=== PATIENT | male | born 1965 | race African-American/Black ===

== ENCOUNTER 2022-04-10 08:34 | Day surgery (SDC) | payer BC ==
[~2022-04-10 08:34] MED LIST: Tixagevimab 1.5 ML/Cilgavimab 1.5 ML (EUA) IM SCH
[2022-04-10 08:48] VITALS: BP 104/61; TEMP 98.1
== END 2022-04-10 09:00 | disposition home or self-care (01) ==
LOC: ONC/OP 08:34
PROVIDERS: ATTEND Family Medicine
DX: Z29.8 Encounter for other specified prophylactic measures (principal); Z94.0 Kidney transplant status
CPT/HCPCS: M0220; Q0220

== ENCOUNTER 2022-05-14 18:09 | Inpatient (IN) | payer BC ==
[2022-05-14 18:43] LABS: #Lymphocytes 0.5 thou/uL (1.20-3.40); #Monocytes 0.3 thou/uL (0.11-0.59); #Neutrophils 4.9 thou/uL (1.40-6.50); %Basophils 0.1 % (0.0-1.0); %Eosinophils 0.1 % (0.0-10.0); %Lymphocytes 8.3 % (21.0-51.0); %Neutrophils 86.5 % (42.0-75.0); Mean Corpuscular HGB CONC 33.6 g/dL (32.0-36.0); Mean Corpuscular Hemoglobin 28.6 pg (27.0-31.0); Mean Corpuscular Volume 85.2 fL (78.0-98.0); Mean Platelet Volume 9.5 fL (7.4-10.4); Platelet Count 146 thou/uL (130-400); RBC Distribution Width 13.7 % (11.5-14.5); Red Blood Cell (RBC) Count 2.09 mill/uL (4.70-6.10); White Blood Cell (WBC) Count 5.6 thou/uL (4.8-10.8)
[2022-05-14 18:59] LABS: ALT (SGPT) Less than 7 U/L (8-55); AST (SGOT) 9 U/L (5-34); Albumin 3.4 g/dL (3.5-5.0); Alkaline Phosphatase 52 U/L (40-110); Anion Gap 17 mmol/L (10-20); Bilirubin, Total 0.4 mg/dL (0.2-1.2); Calc. Creatinine Clearance 0 mL/min (70-130); Calcium 8.5 mg/dL (7.8-10.44); Chloride 112 mmol/L (98-107); Estimated GFR 8; Globulin 2.4 g/dL (2.4-3.5); Glucose 121 mg/dL (70-105); Potassium 5.9 mmol/L (3.5-5.1); Protein, Total 5.8 g/dL (6.0-8.3); Sodium 131 mmol/L (136-145)
[2022-05-14] MEDS ORDERED: NOREPINEPHRINE 8 MG/250 ML-D5W 250 ML ONE ×2 (19:01→19:34)
[2022-05-14 19:07] LABS: Carbon Dioxide 8 mmol/L (22-29)
[2022-05-14 19:10] LABS: BUN (Urea Nitrogen) 118 mg/dL (8.4-25.7)
[2022-05-14] MEDS ORDERED: DOPamine 400 MG/D5W 250 ML 250 ML ONE (19:15)
[2022-05-14 19:20] LABS: CKMB 4.3 ng/mL (0-6.6)
[2022-05-14] MEDS ORDERED: Sodium Bicarb 50 MEQ/50 ML VIAL ONE (19:34)
[2022-05-14] MEDS ORDERED: Sodium Bicarbonate 150 MEQ in Dextrose 5% in Water 1,000 ML IV SCH ×2 (19:45→22:15)
[2022-05-14 20:47] LABS: Anion Gap 18 mmol/L (10-20); Calc. Creatinine Clearance 0 mL/min (70-130); Calcium 8.6 mg/dL (7.8-10.44); Chloride 112 mmol/L (98-107); Estimated GFR 9; Glucose 144 mg/dL (70-105); Potassium 6.2 mmol/L (3.5-5.1); Sodium 133 mmol/L (136-145)
[2022-05-14] MEDS ORDERED: Acetaminophen 325 MG TAB PO PRN (20:52)
[2022-05-14] MEDS ORDERED: Ondansetron ODT 4 MG TAB PO PRN (20:52)
[2022-05-14] MEDS ORDERED: Senokot S 8.6-50 MG TAB PO PRN (20:52)
[2022-05-14] MEDS ORDERED: Ondansetron PF 4 MG/2 ML Vial IVP PRN (20:52)
[2022-05-14] MEDS ORDERED: Bisacodyl 5 MG TAB PO PRN (20:52)
[2022-05-14 20:56] LABS: Carbon Dioxide 9 mmol/L (22-29)
[2022-05-14] MEDS ORDERED: Dextrose 50% Abboject 50 ML SYRINGE SLOW IVP PRN (20:57)
[2022-05-14] MEDS ORDERED: HumaLOG 300 UNITS/3 ML VIAL SC PRN (20:57)
[2022-05-14] MEDS ORDERED: Dextrose 5% in Water 1,000 ML IV PRN (20:57)
[2022-05-14 20:58] LABS: BUN (Urea Nitrogen) 114 mg/dL (8.4-25.7)
[2022-05-14] MEDS ORDERED: Sodium Chloride 0.9% 1,000 ML IV SCH ×2 (21:00→22:00)
[2022-05-14] MEDS ORDERED: NOREPINEPHRINE 8 MG/250 ML-D5W 250 ML IVPB SCH (21:00)
[2022-05-14] MEDS ORDERED: Sodium Bicarb 50 MEQ/50 ML VIAL IVP SCH (22:15)
[2022-05-14] MEDS: Heparin 5,000 UNITS/ML VIAL SC SCH (22:38)
[2022-05-14 22:44] VITALS: BMI 34.7
[2022-05-14 22:50] LABS: Bacteria/HPF None Seen HPF (None Seen); Bilirubin Negative (Negative); Blood, Urine 2+ (Negative); Clarity Clear (Clear); Glucose, Urine (Dipstick) 30 mg/dL (Negative); Ketone, Urine Negative (Negative); Leukocyte 25 Leu/uL (Negative); Nitrite Negative (Negative); Protein, Urine (Dipstick) 100 mg/dL (Neg-Trace); RBC/HPF 21-50 HPF (0-3); Specific Gravity, Urine 1.015 (1.002-1.036); Squamous Epithelial 0-3 HPF (0-3); Urobilinogen Normal mg/dL (Less than 2); pH, Urine 5.5 (5.0-9.0)
[2022-05-14 22:52] LABS: Urine Culture Reflex Yes Yes
[2022-05-14 22:59] LABS: CRP (Inflammatory) Less than 0.50 mg/dL (= or < 0.5); Lipase 531 U/L (8-78)
[2022-05-14 22:59] LABS: Base Excess (BEa) -12.9 mEq/L (-2.0 to +3.0); CO2 Tension 29.8 mmHg (35.0-45.0); Calcium, Ionized (arterial) 1.17 mmol/L (1.12-1.30); Carboxyhemoglobin (COHb) 0.4 gm% (0.0-3.0); Potassium - ABG Lab 5.66 mmol/L (3.70-5.30); pH, Arterial 7.26 (7.35-7.45)
[2022-05-14 22:59] LABS: Iron 161 ug/dL (65-175); Iron Binding Capacity, Total 163 mcg/dL (261-462)
[2022-05-14 23:01] LABS: O2 Tension (PaO2), arterial 30.3 mmHg (80.0-100.0)
[2022-05-14 23:02] LABS: Puncture Site LRA
[2022-05-14] MEDS: DOPamine 400 MG/D5W 250 ML 250 ML IVPB SCH (23:56)
[2022-05-15 00:10] LABS: SARS-CoV-2 NAA Rapid Test Not Detected (NotDetected)
[2022-05-15] MEDS ORDERED: Pantoprazole 40 MG VIAL IVP SCH ×2 (01:00→09:00)
[2022-05-15 03:06] LABS: Reticulocyte Count 1.6 % (0.5-1.5)
[2022-05-15 03:22] LABS: ALT (SGPT) Less than 7 U/L (8-55); AST (SGOT) 10 U/L (5-34); Albumin 3.3 g/dL (3.5-5.0); Alkaline Phosphatase 52 U/L (40-110); Anion Gap 17 mmol/L (10-20); Bilirubin, Total 0.7 mg/dL (0.2-1.2); Calc. Creatinine Clearance 23 mL/min (70-130); Calcium 8.3 mg/dL (7.8-10.44); Carbon Dioxide 13 mmol/L (22-29); Chloride 109 mmol/L (98-107); Estimated GFR 9; Globulin 2.4 g/dL (2.4-3.5); Glucose 133 mg/dL (70-105); Magnesium 1.2 mg/dL (1.6-2.6); Potassium 4.8 mmol/L (3.5-5.1); Protein, Total 5.7 g/dL (6.0-8.3); Sodium 134 mmol/L (136-145)
[2022-05-15 03:34] LABS: BUN (Urea Nitrogen) 121 mg/dL (8.4-25.7)
[2022-05-15] MEDS: DOPamine 400 MG/D5W 250 ML 250 ML IVPB SCH ×2 (04:00→09:25)
[2022-05-15] MEDS: Sodium Bicarbonate 150 MEQ in Dextrose 5% in Water 1,000 ML IV SCH ×2 (04:24→15:20)
[2022-05-15 05:01] LABS: CKMB 4.3 ng/mL (0-6.6)
[2022-05-15 05:26] LABS: Cardiac Risk 2.9 (Less than 4.5); Cholesterol 120 mg/dl (< 200 Desired); HDL Cholesterol 42 mg/dL (>60 Neg Risk); LDL Cholesterol, Calculated 63 mg/dL; Phosphorus 5.9 mg/dL (2.3-4.7); Triglycerides 75 mg/dL (Less than 150)
[2022-05-15 05:35] LABS: Hemoglobin A1c 5.6 % (4.0-6.0)
[2022-05-15 05:37] LABS: #Lymphocytes 0.6 thou/uL (1.20-3.40); #Monocytes 0.6 thou/uL (0.11-0.59); #Neutrophils 4.7 thou/uL (1.40-6.50); %Eosinophils 0.2 % (0.0-10.0); %Lymphocytes 10.1 % (21.0-51.0); %Monocytes 10.3 % (0.0-10.0); %Neutrophils 79.4 % (42.0-75.0); Hemoglobin 6.5 g/dL (14.0-18.0); Mean Corpuscular HGB CONC 33.3 g/dL (32.0-36.0); Mean Corpuscular Hemoglobin 28.2 pg (27.0-31.0); Mean Corpuscular Volume 84.7 fL (78.0-98.0); Mean Platelet Volume 9.4 fL (7.4-10.4); Platelet Count 149 thou/uL (130-400); RBC Distribution Width 14.2 % (11.5-14.5); Red Blood Cell (RBC) Count 2.28 mill/uL (4.70-6.10); White Blood Cell (WBC) Count 5.9 thou/uL (4.8-10.8)
[2022-05-15] MEDS ORDERED: Magnesium 2 GM/50 ML(in water) 2 GM in Premix Bag 1 BAG IVPB SCH ×2 (06:30→13:00)
[2022-05-15 06:59] LABS: Lipase 2391 U/L (8-78)
[2022-05-15] MEDS ORDERED: FLU VACC QS2022-23(6MOS UP)/PF 60 MCG/0.5 ML SYRINGE IM ONE (09:00)
[2022-05-15] MEDS ORDERED: metroNIDAZOLE 500 MG in Premix Bag 1 BAG IVPB SCH (10:55)
[2022-05-15] MEDS ORDERED: Piperacillin/Tazobactam 2.25 GM in Sodium Chloride 0.9% 100 ML IVPB SCH (10:57)
[2022-05-15] MEDS ORDERED: Piperacillin/Tazobactam 3.375 GM in Sodium Chloride 0.9% 100 ML IVPB SCH (11:30)
[2022-05-15] MEDS ORDERED: Pantoprazole 80 MG in Sodium Chloride 0.9% 100 ML IVPB SCH (11:30)
[2022-05-15 13:16] LABS: Hemoglobin 6.6 g/dL (14.0-18.0); Mean Corpuscular Hemoglobin 29.2 pg (27.0-31.0); Mean Corpuscular Volume 85.9 fL (78.0-98.0); Mean Platelet Volume 9.1 fL (7.4-10.4); Platelet Count 140 thou/uL (130-400); RBC Distribution Width 14.6 % (11.5-14.5); Red Blood Cell (RBC) Count 2.25 mill/uL (4.70-6.10); White Blood Cell (WBC) Count 5.5 thou/uL (4.8-10.8)
[2022-05-15] MEDS: Epoetin (ESRD) 10,000 UNITS/ML VIAL SC SCH (13:35)
[2022-05-15] MEDS: metroNIDAZOLE 500 MG in Premix Bag 1 BAG IVPB SCH ×2 (14:17→22:05)
[2022-05-15 15:01] LABS: Glucose 105 mg/dL (70-105)
[2022-05-15 15:25] LABS: Ref Lab Test Ordered Mycophenolate & Met; Reference Lab Name LABCORP
[2022-05-15] MEDS ORDERED: Hydrocortisone Sod Succ/PF 100 mg/2 ml Vial IVP SCH (16:15)
[2022-05-15] MEDS: Pantoprazole 80 MG, Admixture Fee 1 EACH in Sodium Chloride 0.9% 100 ML IVPB SCH (16:23)
[2022-05-15] MEDS: Piperacillin/Tazobactam 3.375 GM in Sodium Chloride 0.9% 100 ML IVPB SCH (16:54)
[2022-05-15] MEDS ORDERED: Sodium Bicarbonate 150 MEQ in Dextrose 5% in Water 1,000 ML IV SCH ×2 (17:00)
[2022-05-15] MEDS ORDERED: GANCICLOVIR SODIUM IVPB SCH ×2 (18:00)
[2022-05-15] MEDS ORDERED: SODIUM CHLORIDE 0.9% IVPB SCH ×2 (18:00)
[2022-05-15 19:22] LABS: Glucose 108 mg/dL (70-105)
[2022-05-15] MEDS: SODIUM CHLORIDE 0.9% IVPB SCH (19:40)
[2022-05-15] MEDS: GANCICLOVIR SODIUM IVPB SCH (19:40)
[2022-05-15 22:55] LABS: Glucose 116 mg/dL (70-105)
[2022-05-16] MEDS: Hydrocortisone Sod Succ/PF 100 mg/2 ml Vial IVP SCH ×4 (00:33→16:54)
[2022-05-16] MEDS: Pantoprazole 80 MG, Admixture Fee 1 EACH in Sodium Chloride 0.9% 100 ML IVPB SCH ×3 (00:38→21:33)
[2022-05-16] MEDS: Piperacillin/Tazobactam 3.375 GM in Sodium Chloride 0.9% 100 ML IVPB SCH ×2 (03:47→16:54)
[2022-05-16 04:52] LABS: Lactic Acid 0.6 mmol/L (0.5-2.2)
[2022-05-16 04:56] LABS: Anion Gap 12 mmol/L (10-20); BUN (Urea Nitrogen) 107 mg/dL (8.4-25.7); Calc. Creatinine Clearance 33 mL/min (70-130); Calcium 8.4 mg/dL (7.8-10.44); Carbon Dioxide 18 mmol/L (22-29); Chloride 113 mmol/L (98-107); Estimated GFR 15; Glucose 126 mg/dL (70-105); Magnesium 1.4 mg/dL (1.6-2.6); Potassium 4.8 mmol/L (3.5-5.1); Sodium 138 mmol/L (136-145)
[2022-05-16 05:05] LABS: #Basophils 0.1 thou/uL (0.0-0.2); #Lymphocytes 0.3 thou/uL (1.20-3.40); #Monocytes 0.3 thou/uL (0.11-0.59); #Neutrophils 5.2 thou/uL (1.40-6.50); %Basophils 2.2 % (0.0-1.0); %Eosinophils 0.1 % (0.0-10.0); %Lymphocytes 4.9 % (21.0-51.0); %Monocytes 4.9 % (0.0-10.0); %Neutrophils 87.9 % (42.0-75.0); Hemoglobin 7.3 g/dL (14.0-18.0); Mean Corpuscular HGB CONC 35.7 g/dL (32.0-36.0); Mean Corpuscular Hemoglobin 30.4 pg (27.0-31.0); Mean Corpuscular Volume 85.2 fL (78.0-98.0); Mean Platelet Volume 9.7 fL (7.4-10.4); Platelet Count 119 thou/uL (130-400); Platelet Morphology Comment Appears Decreased; RBC Distribution Width 14.5 % (11.5-14.5); Red Blood Cell (RBC) Count 2.39 mill/uL (4.70-6.10); White Blood Cell (WBC) Count 5.9 thou/uL (4.8-10.8)
[2022-05-16 05:35] LABS: INR-International Normal Ratio 1.1; Prothrombin Time 14.4 sec (12.0-14.7)
[2022-05-16 05:36] LABS: PTT 38.5 sec (22.9-36.1)
[2022-05-16] MEDS: metroNIDAZOLE 500 MG in Premix Bag 1 BAG IVPB SCH ×3 (06:25→21:19)
[2022-05-16] MEDS ORDERED: Magnesium 2 GM/50 ML(in water) 2 GM in Premix Bag 1 BAG IVPB SCH (07:45)
[2022-05-16] MEDS: Heparin 5,000 UNITS/ML VIAL SC SCH ×3 (08:30→21:34)
[2022-05-16] MEDS: cycloSPORINE, Modified 100 MG CAP PO SCH ×2 (08:36→21:34)
[2022-05-16] MEDS: Magnesium 2 GM/50 ML(in water) 2 GM in Premix Bag 1 BAG IVPB SCH ×2 (10:47→12:57)
[2022-05-16] MEDS: GANCICLOVIR SODIUM IVPB SCH (17:55)
[2022-05-16] MEDS: SODIUM CHLORIDE 0.9% IVPB SCH (17:55)
[2022-05-17 00:57] LABS: Glucose 121 mg/dL (70-105)
[2022-05-17] MEDS: Hydrocortisone Sod Succ/PF 100 mg/2 ml Vial IVP SCH ×4 (01:23→20:29)
[2022-05-17] MEDS: Piperacillin/Tazobactam 3.375 GM in Sodium Chloride 0.9% 100 ML IVPB SCH ×2 (04:12→16:41)
[2022-05-17 04:32] LABS: #Lymphocytes 0.5 thou/uL (1.20-3.40); #Monocytes 0.5 thou/uL (0.11-0.59); #Neutrophils 4.5 thou/uL (1.40-6.50); %Basophils 0.1 % (0.0-1.0); %Eosinophils 0.1 % (0.0-10.0); %Lymphocytes 9.4 % (21.0-51.0); %Monocytes 8.2 % (0.0-10.0); %Neutrophils 82.2 % (42.0-75.0); Hemoglobin 7.5 g/dL (14.0-18.0); Mean Corpuscular HGB CONC 33.4 g/dL (32.0-36.0); Mean Corpuscular Hemoglobin 28.8 pg (27.0-31.0); Mean Corpuscular Volume 86.2 fL (78.0-98.0); Mean Platelet Volume 10.2 fL (7.4-10.4); Platelet Count 109 thou/uL (130-400); RBC Distribution Width 14.7 % (11.5-14.5); Red Blood Cell (RBC) Count 2.59 mill/uL (4.70-6.10); White Blood Cell (WBC) Count 5.4 thou/uL (4.8-10.8)
[2022-05-17 04:58] LABS: ALT (SGPT) Less than 7 U/L (8-55); AST (SGOT) 9 U/L (5-34); Albumin 3.1 g/dL (3.5-5.0); Alkaline Phosphatase 45 U/L (40-110); Anion Gap 12 mmol/L (10-20); BUN (Urea Nitrogen) 86 mg/dL (8.4-25.7); Bilirubin, Direct 0.3 mg/dL (0.1-0.3); Bilirubin, Total 0.7 mg/dL (0.2-1.2); Calc. Creatinine Clearance 40 mL/min (70-130); Calcium 8.7 mg/dL (7.8-10.44); Carbon Dioxide 20 mmol/L (22-29); Cardiac Risk 2.7 (Less than 4.5); Chloride 112 mmol/L (98-107); Cholesterol 115 mg/dl (< 200 Desired); Estimated GFR 18; Globulin 2.2 g/dL (2.4-3.5); Glucose 127 mg/dL (70-105); HDL Cholesterol 42 mg/dL (>60 Neg Risk); LDL Cholesterol, Calculated 60 mg/dL; Lipase 121 U/L (8-78); Magnesium 1.9 mg/dL (1.6-2.6); Potassium 4.2 mmol/L (3.5-5.1); Protein, Total 5.3 g/dL (6.0-8.3); Sodium 140 mmol/L (136-145); Triglycerides 64 mg/dL (Less than 150)
[2022-05-17 05:03] LABS: Phosphorus 3.2 mg/dL (2.3-4.7)
[2022-05-17] MEDS: metroNIDAZOLE 500 MG in Premix Bag 1 BAG IVPB SCH ×2 (06:19→15:01)
[2022-05-17] MEDS: Heparin 5,000 UNITS/ML VIAL SC SCH ×3 (09:32→20:31)
[2022-05-17] MEDS: Mycophenolate 250 MG CAP PO SCH ×2 (09:33→20:28)
[2022-05-17] MEDS: cycloSPORINE, Modified 100 MG CAP PO SCH ×2 (09:33→20:27)
[2022-05-17] MEDS ORDERED: Atenolol 25 MG TAB PO SCH (10:00)
[2022-05-17] MEDS ORDERED: GANCICLOVIR SODIUM IVPB SCH (18:00)
[2022-05-17] MEDS ORDERED: SODIUM CHLORIDE 0.9% IVPB SCH (18:00)
[2022-05-17] MEDS: Tamsulosin HCl 0.4 MG CAP PO SCH (20:27)
[2022-05-18] MEDS: Piperacillin/Tazobactam 3.375 GM in Sodium Chloride 0.9% 100 ML IVPB SCH ×3 (04:24→21:26)
[2022-05-18] MEDS ORDERED: Lisinopril 5 MG TAB PO SCH (09:00)
[2022-05-18] MEDS ORDERED: Atenolol 50 MG TAB PO SCH (09:00)
[2022-05-18] MEDS: Allopurinol 100 MG TAB PO SCH (09:53)
[2022-05-18] MEDS: cycloSPORINE, Modified 100 MG CAP PO SCH ×2 (09:54→21:27)
[2022-05-18] MEDS: Hydrocortisone Sod Succ/PF 100 mg/2 ml Vial IVP SCH ×2 (09:58→21:25)
[2022-05-18] MEDS: Heparin 5,000 UNITS/ML VIAL SC SCH ×3 (09:58→21:26)
[2022-05-18] MEDS: Mycophenolate 250 MG CAP PO SCH ×2 (09:59→21:28)
[2022-05-18] MEDS: Minoxidil 10 MG TAB PO SCH (10:38)
[2022-05-18] MEDS ORDERED: Atenolol 25 MG TAB PO SCH (15:00)
[2022-05-18 16:13] LABS: CMV log 10 Quant 3.726 (.)
[2022-05-18] MEDS ORDERED: SODIUM CHLORIDE 0.9% IVPB SCH (18:00)
[2022-05-18] MEDS ORDERED: GANCICLOVIR SODIUM IVPB SCH (18:00)
[2022-05-18] MEDS: Tamsulosin HCl 0.4 MG CAP PO SCH (21:27)
[2022-05-19 05:32] LABS: ALT (SGPT) 10 U/L (8-55); AST (SGOT) 11 U/L (5-34); Albumin 3.3 g/dL (3.5-5.0); Alkaline Phosphatase 45 U/L (40-110); Anion Gap 14 mmol/L (10-20); BUN (Urea Nitrogen) 47 mg/dL (8.4-25.7); Bilirubin, Total 0.8 mg/dL (0.2-1.2); Calc. Creatinine Clearance 51 mL/min (70-130); Calcium 8.7 mg/dL (7.8-10.44); Carbon Dioxide 22 mmol/L (22-29); Chloride 109 mmol/L (98-107); Estimated GFR 27; Globulin 2.2 g/dL (2.4-3.5); Glucose 121 mg/dL (70-105); Potassium 3.3 mmol/L (3.5-5.1); Protein, Total 5.5 g/dL (6.0-8.3); Sodium 142 mmol/L (136-145)
[2022-05-19 05:41] LABS: Band 2 % (5-11); Eosinophils 2 % (0-10); Hemoglobin 8.1 g/dL (14.0-18.0); Lymphocytes 3 % (21-51); MDiff Complete? YES; Mean Corpuscular HGB CONC 34.1 g/dL (32.0-36.0); Mean Corpuscular Hemoglobin 29.9 pg (27.0-31.0); Mean Corpuscular Volume 87.7 fL (78.0-98.0); Metamyelocyte 1 % (0-0); Monocytes 13 % (0-10); Neutrophil 79 % (42-75); Platelet Count 106 thou/uL (130-400); Platelet Morphology Comment Appears Decreased; RBC Distribution Width 14.7 % (11.5-14.5); White Blood Cell (WBC) Count 4.7 thou/uL (4.8-10.8)
[2022-05-19] MEDS: Piperacillin/Tazobactam 3.375 GM in Sodium Chloride 0.9% 100 ML IVPB SCH (06:44)
[2022-05-19] MEDS ORDERED: Electrolyte Replacement Protocol 1 EACH FS SCH (07:30)
[2022-05-19] MEDS ORDERED: Potassium Chloride 20 MEQ TAB PO SCH (08:00)
[2022-05-19] MEDS: Atenolol 50 MG TAB PO SCH ×2 (10:01→20:38)
[2022-05-19] MEDS: cycloSPORINE, Modified 100 MG CAP PO SCH ×2 (10:02→20:41)
[2022-05-19] MEDS: NIFEdipine XL 30 MG TAB PO SCH ×2 (10:02→20:38)
[2022-05-19] MEDS: Minoxidil 10 MG TAB PO SCH (10:03)
[2022-05-19] MEDS: Hydrocortisone Sod Succ/PF 100 mg/2 ml Vial IVP SCH ×2 (10:03→20:40)
[2022-05-19] MEDS: Allopurinol 100 MG TAB PO SCH (10:03)
[2022-05-19] MEDS: Heparin 5,000 UNITS/ML VIAL SC SCH ×3 (10:04→20:40)
[2022-05-19] MEDS: Mycophenolate 250 MG CAP PO SCH ×2 (10:06→20:41)
[2022-05-19] MEDS: Lisinopril 5 MG TAB PO SCH ×2 (10:06→20:38)
[2022-05-19] MEDS: Tamsulosin HCl 0.4 MG CAP PO SCH (20:40)
[2022-05-19] MEDS: Famotidine 20 MG TAB PO SCH (20:40)
[2022-05-20 05:21] LABS: Anion Gap 12 mmol/L (10-20); BUN (Urea Nitrogen) 44 mg/dL (8.4-25.7); Calc. Creatinine Clearance 55 mL/min (70-130); Calcium 8.3 mg/dL (7.8-10.44); Carbon Dioxide 22 mmol/L (22-29); Chloride 107 mmol/L (98-107); Estimated GFR 29; Glucose 126 mg/dL (70-105); Magnesium 1.1 mg/dL (1.6-2.6); Sodium 138 mmol/L (136-145)
[2022-05-20 06:38] LABS: #Lymphocytes 0.9 thou/uL (1.20-3.40); #Monocytes 0.5 thou/uL (0.11-0.59); #Neutrophils 3.9 thou/uL (1.40-6.50); %Basophils 0.1 % (0.0-1.0); %Eosinophils 0.3 % (0.0-10.0); %Lymphocytes 16.7 % (21.0-51.0); %Monocytes 9.9 % (0.0-10.0); Anisocytosis SLIGHT = 6-15 cells (100X) (0-5/hpf); Hemoglobin 7.5 g/dL (14.0-18.0); MDiff Complete? YES; Mean Corpuscular HGB CONC 33.1 g/dL (32.0-36.0); Mean Corpuscular Hemoglobin 29.1 pg (27.0-31.0); Mean Corpuscular Volume 87.9 fL (78.0-98.0); Mean Platelet Volume 10.6 fL (7.4-10.4); Platelet Count 103 thou/uL (130-400); Platelet Morphology Comment Appears Decreased; RBC Distribution Width 14.7 % (11.5-14.5); Red Blood Cell (RBC) Count 2.57 mill/uL (4.70-6.10); White Blood Cell (WBC) Count 5.4 thou/uL (4.8-10.8)
[2022-05-20 07:16] LABS: HSV 1 - DNA Negative (Negative); HSV 2 - DNA Negative (Negative)
[2022-05-20] MEDS ORDERED: Electrolyte Replacement Protocol 1 EACH FS ONE (07:35)
[2022-05-20] MEDS ORDERED: Magnesium Sulfate 4 GM in Sodium Chloride 0.9% 250 ML 250 ML IVPB SCH (07:45)
[2022-05-20] MEDS ORDERED: Potassium Chloride 20 MEQ TAB PO SCH ×2 (07:45→12:53)
[2022-05-20] MEDS: Allopurinol 100 MG TAB PO SCH (10:05)
[2022-05-20] MEDS: Atenolol 50 MG TAB PO SCH ×2 (10:06→22:04)
[2022-05-20] MEDS: cycloSPORINE, Modified 100 MG CAP PO SCH ×2 (10:06→22:06)
[2022-05-20] MEDS: Famotidine 20 MG TAB PO SCH ×2 (10:06→22:06)
[2022-05-20] MEDS: Heparin 5,000 UNITS/ML VIAL SC SCH ×3 (10:07→22:05)
[2022-05-20] MEDS: Hydrocortisone Sod Succ/PF 100 mg/2 ml Vial IVP SCH ×2 (10:07→22:10)
[2022-05-20] MEDS: Lisinopril 5 MG TAB PO SCH ×2 (10:08→22:08)
[2022-05-20] MEDS: Minoxidil 10 MG TAB PO SCH (10:10)
[2022-05-20] MEDS: NIFEdipine XL 30 MG TAB PO SCH ×2 (10:10→22:09)
[2022-05-20] MEDS: Mycophenolate 250 MG CAP PO SCH ×2 (10:19→22:08)
[2022-05-20] MEDS ORDERED: Magnesium Sulfate In Water 4 GM in Premix Bag 1 BAG IVPB SCH (13:00)
[2022-05-20] MEDS: Tamsulosin HCl 0.4 MG CAP PO SCH (22:09)
[2022-05-21 05:25] LABS: #Eosinphils 0.1 thou/uL (0.0-0.7); #Lymphocytes 1.1 thou/uL (1.20-3.40); #Monocytes 0.4 thou/uL (0.11-0.59); #Neutrophils 5.1 thou/uL (1.40-6.50); %Basophils 0.2 % (0.0-1.0); %Eosinophils 1.4 % (0.0-10.0); %Lymphocytes 16.3 % (21.0-51.0); %Monocytes 5.6 % (0.0-10.0); %Neutrophils 76.4 % (42.0-75.0); Hemoglobin 7.7 g/dL (14.0-18.0); Mean Corpuscular HGB CONC 32.9 g/dL (32.0-36.0); Mean Corpuscular Hemoglobin 28.9 pg (27.0-31.0); Mean Corpuscular Volume 87.7 fL (78.0-98.0); Mean Platelet Volume 10.6 fL (7.4-10.4); Platelet Count 103 thou/uL (130-400); RBC Distribution Width 14.5 % (11.5-14.5); Red Blood Cell (RBC) Count 2.67 mill/uL (4.70-6.10); White Blood Cell (WBC) Count 6.7 thou/uL (4.8-10.8)
[2022-05-21 05:34] LABS: ALT (SGPT) 10 U/L (8-55); AST (SGOT) 10 U/L (5-34); Alkaline Phosphatase 46 U/L (40-110); Anion Gap 12 mmol/L (10-20); BUN (Urea Nitrogen) 40 mg/dL (8.4-25.7); Bilirubin, Total 0.7 mg/dL (0.2-1.2); Calc. Creatinine Clearance 65 mL/min (70-130); Calcium 8.3 mg/dL (7.8-10.44); Carbon Dioxide 21 mmol/L (22-29); Chloride 109 mmol/L (98-107); Estimated GFR 36; Glucose 106 mg/dL (70-105); Magnesium 1.5 mg/dL (1.6-2.6); Potassium 3.2 mmol/L (3.5-5.1); Sodium 139 mmol/L (136-145)
[2022-05-21 05:38] LABS: Phosphorus 1.8 mg/dL (2.3-4.7)
[2022-05-21] MEDS: PHOS-NAK 1 PKT PACK PO SCH ×2 (06:12→11:42)
[2022-05-21 07:15] LABS: HSV 2 DNA, Rectum Negative (Negative)
[2022-05-21] MEDS ORDERED: Magnesium Sulfate 4 GM in Sodium Chloride 0.9% 250 ML 250 ML IVPB SCH (07:30)
[2022-05-21] MEDS: NIFEdipine XL 30 MG TAB PO SCH ×2 (08:30→21:38)
[2022-05-21] MEDS: Potassium Chloride 20 MEQ TAB PO SCH ×2 (08:31→16:51)
[2022-05-21] MEDS: Allopurinol 100 MG TAB PO SCH (08:31)
[2022-05-21] MEDS: Lisinopril 5 MG TAB PO SCH ×2 (08:31→21:37)
[2022-05-21] MEDS: cycloSPORINE, Modified 100 MG CAP PO SCH ×2 (08:31→21:35)
[2022-05-21] MEDS: Heparin 5,000 UNITS/ML VIAL SC SCH ×3 (08:32→21:49)
[2022-05-21] MEDS: Minoxidil 10 MG TAB PO SCH (08:33)
[2022-05-21] MEDS: Atenolol 50 MG TAB PO SCH ×2 (08:34→21:49)
[2022-05-21] MEDS ORDERED: Magnesium Sulfate In Water 4 GM in Premix Bag 1 BAG IVPB SCH (09:00)
[2022-05-21] MEDS: Mycophenolate 250 MG CAP PO SCH ×2 (10:44→21:54)
[2022-05-21] MEDS: Hydrocortisone Sod Succ/PF 100 mg/2 ml Vial IVP SCH ×2 (10:45→21:39)
[2022-05-21] MEDS: Famotidine 20 MG TAB PO SCH ×2 (10:45→21:36)
[2022-05-21] MEDS ORDERED: PHOS-NAK 1 PKT PACK PO SCH (11:45)
[2022-05-21] MEDS: Tamsulosin HCl 0.4 MG CAP PO SCH (21:38)
[2022-05-22 05:21] LABS: #Eosinphils 0.1 thou/uL (0.0-0.7); #Lymphocytes 0.7 thou/uL (1.20-3.40); #Monocytes 0.5 thou/uL (0.11-0.59); #Neutrophils 5.5 thou/uL (1.40-6.50); %Basophils 0.5 % (0.0-1.0); %Eosinophils 0.8 % (0.0-10.0); %Lymphocytes 10.6 % (21.0-51.0); %Monocytes 6.9 % (0.0-10.0); %Neutrophils 81.1 % (42.0-75.0); Hemoglobin 7.6 g/dL (14.0-18.0); Mean Corpuscular HGB CONC 33.8 g/dL (32.0-36.0); Mean Corpuscular Hemoglobin 29.7 pg (27.0-31.0); Mean Corpuscular Volume 88.1 fL (78.0-98.0); Mean Platelet Volume 10.9 fL (7.4-10.4); Platelet Count 110 thou/uL (130-400); RBC Distribution Width 14.9 % (11.5-14.5); Red Blood Cell (RBC) Count 2.56 mill/uL (4.70-6.10); White Blood Cell (WBC) Count 6.8 thou/uL (4.8-10.8)
[2022-05-22 05:23] LABS: ALT (SGPT) 10 U/L (8-55); AST (SGOT) 9 U/L (5-34); Albumin 2.9 g/dL (3.5-5.0); Alkaline Phosphatase 45 U/L (40-110); Anion Gap 12 mmol/L (10-20); BUN (Urea Nitrogen) 38 mg/dL (8.4-25.7); Bilirubin, Total 0.6 mg/dL (0.2-1.2); Calc. Creatinine Clearance 63 mL/min (70-130); Calcium 8.3 mg/dL (7.8-10.44); Carbon Dioxide 20 mmol/L (22-29); Chloride 108 mmol/L (98-107); Estimated GFR 34; Glucose 128 mg/dL (70-105); Magnesium 1.8 mg/dL (1.6-2.6); Phosphorus 2.4 mg/dL (2.3-4.7); Potassium 3.4 mmol/L (3.5-5.1); Protein, Total 4.9 g/dL (6.0-8.3); Sodium 137 mmol/L (136-145)
[2022-05-22] MEDS ORDERED: Magnesium 2 GM/50 ML(in water) 2 GM in Premix Bag 1 BAG IVPB SCH (08:00)
[2022-05-22] MEDS: Minoxidil 10 MG TAB PO SCH (10:03)
[2022-05-22] MEDS: cycloSPORINE, Modified 100 MG CAP PO SCH ×2 (10:04→22:08)
[2022-05-22] MEDS: Potassium Chloride 20 MEQ TAB PO SCH ×4 (10:04→17:01)
[2022-05-22] MEDS: Mycophenolate 250 MG CAP PO SCH ×2 (10:05→22:09)
[2022-05-22] MEDS: Lisinopril 5 MG TAB PO SCH ×2 (10:06→22:08)
[2022-05-22] MEDS: Famotidine 20 MG TAB PO SCH ×2 (10:06→22:08)
[2022-05-22] MEDS: Hydrocortisone Sod Succ/PF 100 mg/2 ml Vial IVP SCH ×2 (10:07→22:11)
[2022-05-22] MEDS: NIFEdipine XL 30 MG TAB PO SCH ×2 (10:07→22:10)
[2022-05-22] MEDS: Allopurinol 100 MG TAB PO SCH (10:07)
[2022-05-22] MEDS: Atenolol 50 MG TAB PO SCH (10:09)
[2022-05-22] MEDS: Epoetin (ESRD) 10,000 UNITS/ML VIAL SC SCH (12:14)
[2022-05-22 21:21] LABS: Potassium 3.6 mmol/L (3.5-5.1)
[2022-05-22] MEDS: Tamsulosin HCl 0.4 MG CAP PO SCH (22:10)
[2022-05-23 05:14] LABS: Anion Gap 11 mmol/L (10-20); BUN (Urea Nitrogen) 35 mg/dL (8.4-25.7); Calc. Creatinine Clearance 71 mL/min (70-130); Calcium 8.3 mg/dL (7.8-10.44); Carbon Dioxide 21 mmol/L (22-29); Chloride 111 mmol/L (98-107); Estimated GFR 40; Glucose 108 mg/dL (70-105); Magnesium 1.8 mg/dL (1.6-2.6); Sodium 139 mmol/L (136-145)
[2022-05-23] MEDS ORDERED: Atenolol 25 MG TAB PO SCH (09:00)
[2022-05-23] MEDS: Potassium Chloride 20 MEQ TAB PO SCH (09:01)
[2022-05-23] MEDS: cycloSPORINE, Modified 100 MG CAP PO SCH (09:02)
[2022-05-23] MEDS: Lisinopril 5 MG TAB PO SCH (09:02)
[2022-05-23] MEDS: Allopurinol 100 MG TAB PO SCH (09:02)
[2022-05-23] MEDS: NIFEdipine XL 30 MG TAB PO SCH (09:02)
[2022-05-23] MEDS: Minoxidil 10 MG TAB PO SCH (09:02)
[2022-05-23] MEDS: Famotidine 20 MG TAB PO SCH (09:03)
[2022-05-23] MEDS: Hydrocortisone Sod Succ/PF 100 mg/2 ml Vial IVP SCH (09:03)
[2022-05-23] MEDS: Mycophenolate 250 MG CAP PO SCH (09:03)
[2022-05-23 15:50] VITALS: BP 112/63; TEMP 97.8
== END 2022-05-23 18:20 | disposition home or self-care (01) | DRG 871 ==
LOC: ERS 18:09 → SUATTDRO 18:09 → CCU 20:16 → 2SW 05-17 18:33
PROVIDERS: ADMIT Internal Medicine; ATTEND Internal Medicine
PROC: 3E043XZ Introduction of Vasopressor into Central Vein, Percutaneous Approach (ICD-10-PCS; principal; 2022-05-14)
PROC: 30233N1 Transfusion of Nonautologous Red Blood Cells into Peripheral Vein, Percutaneous Approach (ICD-10-PCS; 2022-05-14)
PROC: 3E04329 Introduction of Other Anti-infective into Central Vein, Percutaneous Approach (ICD-10-PCS; 2022-05-15)
PROC: 5A09357 Assistance with Respiratory Ventilation, Less than 24 Consecutive Hours, Continuous Positive Airway Pressure (ICD-10-PCS; 2022-05-16)
PROC: 8E0ZXY6 Isolation (ICD-10-PCS; 2022-05-16)
DX: A41.89 Other specified sepsis (principal); A00-B99 Certain infectious and parasitic diseases; R57.1 Hypovolemic shock; B25.8 Other cytomegaloviral diseases; A08.39 Other viral enteritis; N17.9 Acute kidney failure, unspecified; T86.19 Other complication of kidney transplant; D84.9 Immunodeficiency, unspecified; K62.6 Ulcer of anus and rectum; I47.1 Supraventricular tachycardia; E87.20 Acidosis, unspecified; R65.20 Severe sepsis without septic shock; Z20.822 Contact with and (suspected) exposure to COVID-19; E86.9 Volume depletion, unspecified; D63.1 Anemia in chronic kidney disease; E87.6 Hypokalemia; R77.8 Other specified abnormalities of plasma proteins; R00.1 Bradycardia, unspecified; I12.9 Hypertensive chronic kidney disease with stage 1 through stage 4 chronic kidney disease, or unspecified chronic kidney disease; I27.20 Pulmonary hypertension, unspecified; Y83.0 Surgical operation with transplant of whole organ as the cause of abnormal reaction of the patient, or of later complication, without mention of misadventure at the time of the procedure; Z96.652 Presence of left artificial knee joint; E86.0 Dehydration; I49.3 Ventricular premature depolarization; Z28.21 Immunization not carried out because of patient refusal; Z86.16 Personal history of COVID-19; Z98.890 Other specified postprocedural states; Z79.899 Other long term (current) drug therapy
CPT/HCPCS: 36415; 36416; 36430; 36600; 71045; 71250; 74177; 76705; 80048; 80053; 80061; 80076; 80158; 81001; 82274; 82550; 82553; 82570; 82805; 83010; 83036; 83540; 83550; 83605; 83615; 83690; 83735; 83880; 84100; 84145; 84156; 84484; 85025; 85046; 85610; 85730; 86140; 86850; 86900; 86901; 87040; 87086; 87324; 87449; 87497; 87529; 87811; 93005; 93010; 93306; 96361; 96374; 96375; C9113; J1265; J1570; J1644; J1720; J2543; J3475; J3490; J7050; J7070; J7502; J7517; J8499; P9016; Q4081; U0002

== ENCOUNTER 2022-11-30 14:45 | Inpatient (IN) | payer BC ==
[2022-11-30] MEDS ORDERED: Morphine 4 MG/ML VIAL ONE (15:32)
[2022-11-30] MEDS ORDERED: Heparin 10,000 UNITS/ 10 ML VIAL ONE (15:43)
[2022-11-30 16:03] LABS: #Lymphocytes 0.8 thou/uL (1.20-3.40); #Monocytes 0.6 thou/uL (0.11-0.59); #Neutrophils 5.9 thou/uL (1.40-6.50); %Basophils 0.1 % (0.0-1.0); %Eosinophils 0.6 % (0.0-10.0); %Lymphocytes 11.2 % (21.0-51.0); %Neutrophils 80.1 % (42.0-75.0); Hemoglobin 8.6 g/dL (14.0-18.0); Mean Corpuscular HGB CONC 33.4 g/dL (32.0-36.0); Mean Corpuscular Hemoglobin 27.8 pg (27.0-31.0); Mean Corpuscular Volume 83.2 fl (78.0-98.0); Mean Platelet Volume 9.3 fL (7.4-10.4); Platelet Count 248 10x3/uL (130-400); Red Blood Cell (RBC) Count 3.11 mill/uL (4.70-6.10); White Blood Cell (WBC) Count 7.3 10x3/uL (4.8-10.8)
[2022-11-30 16:06] LABS: Bacteria/HPF None Seen HPF (None Seen); Bilirubin Negative (Negative); Blood, Urine 2+ (Negative); Clarity Turbid (Clear); Glucose, Urine (Dipstick) Normal (Negative); Ketone, Urine Negative (Negative); Leukocyte Negative Leu/uL (Negative); Nitrite Negative (Negative); Protein, Urine (Dipstick) 600 mg/dL (Neg-Trace); Squamous Epithelial 0-3 HPF (0-3); Urobilinogen Normal mg/dL (Less than 2)
[2022-11-30 16:29] LABS: ALT (SGPT) 10 U/L (8-55); AST (SGOT) 15 U/L (5-34); Albumin 2.6 g/dL (3.5-5.0); Alkaline Phosphatase 70 U/L (40-110); Anion Gap 20 mmol/L (10-20); Bilirubin, Total 0.3 mg/dL (0.2-1.2); CK (CPK) 325 U/L (30-200); Calc. Creatinine Clearance 0 mL/min (70-130); Calcium 8.3 mg/dL (7.8-10.44); Chloride 117 mmol/L (98-107); Estimated GFR 5; Globulin 2.8 g/dL (2.4-3.5); Glucose 104 mg/dL (70-105); Magnesium 1.5 mg/dL (1.6-2.6); Protein, Total 5.4 g/dL (6.0-8.3); Sodium 137 mmol/L (136-145)
[2022-11-30 16:41] LABS: BUN (Urea Nitrogen) 123 mg/dL (8.4-25.7)
[2022-11-30 16:50] LABS: Carbon Dioxide 8 mmol/L (22-29); Potassium 7.7 mmol/L (3.5-5.1)
[2022-11-30] MEDS ORDERED: Calcium Chloride 1 GM/10 ML Abboject SYRINGE ONE (16:56)
[2022-11-30] MEDS ORDERED: Insulin Regular 300 UNITS/3 ML VIAL ONE (16:56)
[2022-11-30] MEDS ORDERED: Sodium Bicarbonate 2.5 MEQ/5 ML VIAL ONE (16:56)
[2022-11-30] MEDS ORDERED: Dextrose 50% Abboject 50 ML SYRINGE ONE (16:56)
[2022-11-30] MEDS ORDERED: Sodium Bicarb 50 MEQ/50 ML VIAL ONE (17:00)
[2022-11-30] MEDS ORDERED: Ondansetron PF 4 MG/2 ML Vial IVP PRN (17:42)
[2022-11-30 18:01] LABS: HBSAB Concentration Less than 8.00 mIU/mL; HBSAg Index 0.29 S/CO (0-0.99); Hep B Core Total Ab Non-Reactive (NonReactive); Hep B Core Total Index 0.05 S/CO (0-0.79); Hep B Surf AB Non-Reactive (NonReactive); Hep B Surf Ag Non-Reactive S/CO (NonReactive); Hep C IgG Ab Non-Reactive S/CO (NonReactive)
[2022-11-30] MEDS: Heparin 5,000 UNITS/ML VIAL SC SCH (21:02)
[2022-12-01] MEDS: Acetaminophen 325 MG TAB PO PRN ×4 (00:04→21:41)
[2022-12-01 05:05] LABS: ALT (SGPT) 7 U/L (8-55); AST (SGOT) 13 U/L (5-34); Albumin 2.2 g/dL (3.5-5.0); Alkaline Phosphatase 65 U/L (40-110); Bilirubin, Direct 0.2 mg/dL (0.1-0.3); Bilirubin, Total 0.3 mg/dL (0.2-1.2); Protein, Total 4.4 g/dL (6.0-8.3)
[2022-12-01 05:06] LABS: Anion Gap 17 mmol/L (10-20); BUN (Urea Nitrogen) 93 mg/dL (8.4-25.7); Calc. Creatinine Clearance 17 mL/min (70-130); Calcium 8.1 mg/dL (7.8-10.44); Carbon Dioxide 15 mmol/L (22-29); Chloride 113 mmol/L (98-107); Estimated GFR 8; Glucose 89 mg/dL (70-105); Magnesium 1.7 mg/dL (1.6-2.6); Potassium 5.8 mmol/L (3.5-5.1); Sodium 139 mmol/L (136-145)
[2022-12-01 05:12] LABS: #Monocytes 0.7 thou/uL (0.11-0.59); #Neutrophils 3.2 thou/uL (1.40-6.50); %Basophils 0.1 % (0.0-1.0); %Eosinophils 0.5 % (0.0-10.0); %Lymphocytes 20.4 % (21.0-51.0); %Monocytes 14.2 % (0.0-10.0); %Neutrophils 64.8 % (42.0-75.0); Hemoglobin 7.6 g/dL (14.0-18.0); Mean Corpuscular HGB CONC 35.5 g/dL (32.0-36.0); Mean Corpuscular Hemoglobin 29.1 pg (27.0-31.0); Mean Corpuscular Volume 81.9 fl (78.0-98.0); Mean Platelet Volume 9.4 fL (7.4-10.4); Platelet Count 214 10x3/uL (130-400); RBC Distribution Width 13.7 % (11.5-14.5); Red Blood Cell (RBC) Count 2.63 mill/uL (4.70-6.10); White Blood Cell (WBC) Count 4.9 10x3/uL (4.8-10.8)
[2022-12-01 07:45] LABS: Bilirubin Negative (Negative); Blood, Urine 2+ (Negative); Clarity Clear (Clear); Glucose, Urine (Dipstick) Normal (Negative); Ketone, Urine Negative (Negative); Leukocyte Negative Leu/uL (Negative); Nitrite Negative (Negative); Protein, Urine (Dipstick) 600 mg/dL (Neg-Trace); Specific Gravity, Urine 1.021 (1.002-1.036); Squamous Epithelial 0-3 HPF (0-3); Urobilinogen Normal mg/dL (Less than 2)
[2022-12-01 08:12] LABS: Bacteria/HPF 1+ HPF (None Seen)
[2022-12-01] MEDS ORDERED: Heparin 10,000 UNITS/ 10 ML VIAL ONE (08:20)
[2022-12-01] MEDS ORDERED: Atenolol 25 MG TAB PO SCH (09:00)
[2022-12-01] MEDS ORDERED: Minoxidil 10 MG TAB PO SCH (09:00)
[2022-12-01] MEDS ORDERED: Tamsulosin HCl 0.4 MG CAP PO SCH (09:00)
[2022-12-01] MEDS ORDERED: NIFEdipine XL 30 MG TAB PO SCH (09:00)
[2022-12-01] MEDS: Heparin 5,000 UNITS/ML VIAL SC SCH ×2 (09:22→21:13)
[2022-12-01] MEDS: Famotidine 20 MG TAB PO SCH (09:22)
[2022-12-01] MEDS: predniSONE 5 MG TAB PO SCH (09:22)
[2022-12-01 12:10] LABS: Ref Lab Test Ordered Mycophenolate level; Reference Lab Name LABCORP
[2022-12-01] MEDS: cycloSPORINE, Modified 100 MG CAP PO SCH (21:13)
[2022-12-02] MEDS: Acetaminophen 325 MG TAB PO PRN ×4 (03:52→20:57)
[2022-12-02 05:09] LABS: Hemoglobin 7.7 g/dL (14.0-18.0); Mean Corpuscular HGB CONC 34.9 g/dL (32.0-36.0); Mean Corpuscular Hemoglobin 28.9 pg (27.0-31.0); Mean Corpuscular Volume 82.9 fl (78.0-98.0); Mean Platelet Volume 9.7 fL (7.4-10.4); Platelet Count 194 10x3/uL (130-400); RBC Distribution Width 13.7 % (11.5-14.5); Red Blood Cell (RBC) Count 2.66 mill/uL (4.70-6.10)
[2022-12-02 05:19] LABS: Anion Gap 12 mmol/L (10-20); BUN (Urea Nitrogen) 56 mg/dL (8.4-25.7); Calc. Creatinine Clearance 22 mL/min (70-130); Calcium 7.6 mg/dL (7.8-10.44); Carbon Dioxide 25 mmol/L (22-29); Chloride 105 mmol/L (98-107); Estimated GFR 11; Glucose 93 mg/dL (70-105); Magnesium 1.4 mg/dL (1.6-2.6); Sodium 137 mmol/L (136-145)
[2022-12-02 06:00] LABS: Lymphocytes 19 % (21-51); MDiff Complete? YES; Monocytes 14 % (0-10); Neutrophil 67 % (42-75); Nucleated RBC (Manual Ct) 1 % (0); Ovalocytes SLIGHT = 2-5 cells (100X) (0-1/hpf); Platelet Morphology Comment Appears Adequate; Polychromasia SLIGHT = 2-3 cells (100X) (0-2/hpf); Target Cells SLIGHT = 2-5 cells (100X) (0-1/hpf)
[2022-12-02] MEDS: Famotidine 20 MG TAB PO SCH (07:46)
[2022-12-02] MEDS: Heparin 5,000 UNITS/ML VIAL SC SCH ×2 (07:46→20:58)
[2022-12-02] MEDS: predniSONE 5 MG TAB PO SCH (07:47)
[2022-12-02] MEDS ORDERED: Heparin 10,000 UNITS/ 10 ML VIAL ONE (08:21)
[2022-12-02] MEDS: cycloSPORINE, Modified 100 MG CAP PO SCH ×2 (09:37→20:57)
[2022-12-02] MEDS: Magnesium Oxide 250 MG TAB PO SCH ×2 (09:37→20:57)
[2022-12-02] MEDS: EPOETIN ALFA-EPBX (ESRD) 10,000 UNITS/ML VIAL SC SCH (10:21)
[2022-12-03] MEDS: Acetaminophen 325 MG TAB PO PRN ×4 (02:13→21:14)
[2022-12-03 05:20] LABS: Mean Corpuscular HGB CONC 34.8 g/dL (32.0-36.0); Mean Corpuscular Hemoglobin 29.1 pg (27.0-31.0); Mean Corpuscular Volume 83.8 fl (78.0-98.0); Mean Platelet Volume 9.7 fL (7.4-10.4); Platelet Count 160 10x3/uL (130-400); RBC Distribution Width 13.3 % (11.5-14.5); Red Blood Cell (RBC) Count 2.39 mill/uL (4.70-6.10); White Blood Cell (WBC) Count 6.3 10x3/uL (4.8-10.8)
[2022-12-03 05:34] LABS: Anion Gap 12 mmol/L (10-20); BUN (Urea Nitrogen) 38 mg/dL (8.4-25.7); Calc. Creatinine Clearance 26 mL/min (70-130); Calcium 7.6 mg/dL (7.8-10.44); Carbon Dioxide 25 mmol/L (22-29); Chloride 102 mmol/L (98-107); Estimated GFR 14; Glucose 90 mg/dL (70-105); Magnesium 1.6 mg/dL (1.6-2.6); Sodium 135 mmol/L (136-145)
[2022-12-03 06:01] LABS: Band 4 % (5-11); Lymphocytes 12 % (21-51); MDiff Complete? YES; Monocytes 16 % (0-10); Neutrophil 68 % (42-75)
[2022-12-03] MEDS: Magnesium Oxide 250 MG TAB PO SCH ×2 (08:07→21:15)
[2022-12-03] MEDS: Famotidine 20 MG TAB PO SCH (08:08)
[2022-12-03] MEDS: Heparin 5,000 UNITS/ML VIAL SC SCH ×2 (08:08→21:15)
[2022-12-03] MEDS: predniSONE 5 MG TAB PO SCH (08:08)
[2022-12-03] MEDS: cycloSPORINE, Modified 100 MG CAP PO SCH ×2 (08:18→21:16)
[2022-12-03] MEDS ORDERED: Heparin 10,000 UNITS/ 10 ML VIAL ONE (10:20)
[2022-12-04] MEDS: Acetaminophen 325 MG TAB PO PRN ×4 (09:06→23:59)
[2022-12-04] MEDS: predniSONE 5 MG TAB PO SCH (09:08)
[2022-12-04] MEDS: Magnesium Oxide 250 MG TAB PO SCH ×2 (09:08→20:19)
[2022-12-04] MEDS: Heparin 5,000 UNITS/ML VIAL SC SCH ×2 (09:08→20:19)
[2022-12-04] MEDS: Famotidine 20 MG TAB PO SCH (09:08)
[2022-12-04] MEDS: cycloSPORINE, Modified 100 MG CAP PO SCH ×2 (09:09→20:19)
[2022-12-04] MEDS ORDERED: Heparin 10,000 UNITS/ 10 ML VIAL ONE (09:26)
[2022-12-04 16:16] LABS: CMV log 10 Quant 3.753 (.)
[2022-12-04] MEDS ORDERED: VALGANCICLOVIR IVPB PRN (17:30)
[2022-12-05] MEDS: Acetaminophen 325 MG TAB PO PRN ×5 (04:00→23:55)
[2022-12-05 05:12] LABS: Anion Gap 12 mmol/L (10-20); BUN (Urea Nitrogen) 18 mg/dL (8.4-25.7); CRP (Inflammatory) 12.69 mg/dL (= or < 0.5); Calc. Creatinine Clearance 38 mL/min (70-130); Calcium 7.6 mg/dL (7.8-10.44); Carbon Dioxide 27 mmol/L (22-29); Chloride 98 mmol/L (98-107); Estimated GFR 19; Glucose 92 mg/dL (70-105); Sodium 134 mmol/L (136-145)
[2022-12-05 05:28] LABS: Band 1 % (5-11); Eosinophils 3 % (0-10); Hemoglobin 7.4 g/dL (14.0-18.0); Lymphocytes 13 % (21-51); MDiff Complete? YES; Mean Corpuscular HGB CONC 33.8 g/dL (32.0-36.0); Mean Corpuscular Volume 85.9 fl (78.0-98.0); Mean Platelet Volume 10.3 fL (7.4-10.4); Monocytes 8 % (0-10); Neutrophil 75 % (42-75); Platelet Count 122 10x3/uL (130-400); Platelet Morphology Comment Appears Decreased; RBC Distribution Width 12.9 % (11.5-14.5); RBC Morphology Normal; Red Blood Cell (RBC) Count 2.54 mill/uL (4.70-6.10)
[2022-12-05] MEDS: predniSONE 5 MG TAB PO SCH (08:10)
[2022-12-05] MEDS: Famotidine 20 MG TAB PO SCH (08:11)
[2022-12-05] MEDS: Magnesium Oxide 250 MG TAB PO SCH ×2 (08:11→20:10)
[2022-12-05] MEDS: Heparin 5,000 UNITS/ML VIAL SC SCH ×2 (08:17→20:11)
[2022-12-05] MEDS: cycloSPORINE, Modified 100 MG CAP PO SCH ×2 (09:14→20:10)
[2022-12-05 13:21] LABS: Creatinine, Urine 44.97 mg/dL (63-166)
[2022-12-06 01:53] LABS: Anion Gap 14 mmol/L (10-20); BUN (Urea Nitrogen) 29 mg/dL (8.4-25.7); Calc. Creatinine Clearance 25 mL/min (70-130); Calcium 8.1 mg/dL (7.8-10.44); Carbon Dioxide 26 mmol/L (22-29); Chloride 97 mmol/L (98-107); Estimated GFR 12; Glucose 99 mg/dL (70-105); Magnesium 1.8 mg/dL (1.6-2.6); Potassium 3.3 mmol/L (3.5-5.1); Sodium 134 mmol/L (136-145)
[2022-12-06 05:01] LABS: Hemoglobin 8.3 g/dL (14.0-18.0); Mean Corpuscular HGB CONC 34.9 g/dL (32.0-36.0); Mean Corpuscular Hemoglobin 29.9 pg (27.0-31.0); Mean Corpuscular Volume 85.7 fl (78.0-98.0); Mean Platelet Volume 11.6 fL (7.4-10.4); Platelet Count 110 10x3/uL (130-400); RBC Distribution Width 13.2 % (11.5-14.5); Red Blood Cell (RBC) Count 2.79 mill/uL (4.70-6.10); White Blood Cell (WBC) Count 6.3 10x3/uL (4.8-10.8)
[2022-12-06 05:57] LABS: Anion Gap 14 mmol/L (10-20); BUN (Urea Nitrogen) 30 mg/dL (8.4-25.7); Calc. Creatinine Clearance 24 mL/min (70-130); Calcium 7.8 mg/dL (7.8-10.44); Carbon Dioxide 25 mmol/L (22-29); Chloride 97 mmol/L (98-107); Estimated GFR 11; Glucose 93 mg/dL (70-105); Potassium 3.1 mmol/L (3.5-5.1); Sodium 133 mmol/L (136-145)
[2022-12-06] MEDS: predniSONE 5 MG TAB PO SCH (08:23)
[2022-12-06] MEDS: Acetaminophen 325 MG TAB PO PRN (08:23)
[2022-12-06] MEDS: Famotidine 20 MG TAB PO SCH (08:23)
[2022-12-06] MEDS: cycloSPORINE, Modified 100 MG CAP PO SCH ×2 (08:24→20:28)
[2022-12-06] MEDS: Magnesium Oxide 250 MG TAB PO SCH ×2 (08:24→20:28)
[2022-12-06] MEDS: Heparin 5,000 UNITS/ML VIAL SC SCH ×2 (12:47→20:29)
[2022-12-07] MEDS: Acetaminophen 325 MG TAB PO PRN ×3 (00:42→18:40)
[2022-12-07 05:29] LABS: Anion Gap 15 mmol/L (10-20); BUN (Urea Nitrogen) 47 mg/dL (8.4-25.7); Calc. Creatinine Clearance 12 mL/min (70-130); Calcium 7.8 mg/dL (7.8-10.44); Carbon Dioxide 24 mmol/L (22-29); Chloride 97 mmol/L (98-107); Estimated GFR 9; Glucose 93 mg/dL (70-105); Potassium 3.1 mmol/L (3.5-5.1); Sodium 133 mmol/L (136-145)
[2022-12-07 06:33] LABS: Hemoglobin 8.1 g/dL (14.0-18.0); Mean Corpuscular Hemoglobin 29.8 pg (27.0-31.0); Mean Corpuscular Volume 85.1 fl (78.0-98.0); Mean Platelet Volume 11.6 fL (7.4-10.4); Platelet Count 113 10x3/uL (130-400); Red Blood Cell (RBC) Count 2.73 mill/uL (4.70-6.10); White Blood Cell (WBC) Count 7.3 10x3/uL (4.8-10.8)
[2022-12-07] MEDS: predniSONE 5 MG TAB PO SCH (08:18)
[2022-12-07] MEDS: Magnesium Oxide 250 MG TAB PO SCH ×2 (08:18→21:24)
[2022-12-07] MEDS: Famotidine 20 MG TAB PO SCH (08:19)
[2022-12-07] MEDS: cycloSPORINE, Modified 100 MG CAP PO SCH ×2 (08:20→21:25)
[2022-12-07] MEDS ORDERED: Heparin 10,000 UNITS/ 10 ML VIAL ONE (08:40)
[2022-12-07 10:07] LABS: Band 4 % (5-11); Bite Cells SLIGHT = 2-5 cells (100X) (0-1/hpf); Eosinophils 1 % (0-10); Lymphocytes 11 % (21-51); MDiff Complete? YES; Metamyelocyte 2 % (0-0); Monocytes 16 % (0-10); Neutrophil 66 % (42-75); Platelet Morphology Comment Appears Decreased; Polychromasia SLIGHT = 2-3 cells (100X) (0-2/hpf); Schistocytes SLIGHT = 2-5 cells (100X) (0-1/hpf)
[2022-12-07] MEDS: Heparin 5,000 UNITS/ML VIAL SC SCH ×2 (11:54→22:42)
[2022-12-07] MEDS ORDERED: Electrolyte Replacement Protocol 1 EACH FS ONE (17:28)
[2022-12-07] MEDS: GANCICLOVIR SODIUM IVPB SCH (18:30)
[2022-12-07] MEDS: SODIUM CHLORIDE 0.9% IVPB SCH (18:30)
[2022-12-08] MEDS: Acetaminophen 325 MG TAB PO PRN (02:01)
[2022-12-08] MEDS ORDERED: Tuberculin PPD 0.1 ML VIAL I-DERMAL SCH (08:00)
[2022-12-08] MEDS: Magnesium Oxide 250 MG TAB PO SCH ×2 (08:32→20:23)
[2022-12-08] MEDS: Famotidine 20 MG TAB PO SCH (08:33)
[2022-12-08] MEDS: cycloSPORINE, Modified 100 MG CAP PO SCH ×2 (08:33→20:23)
[2022-12-08] MEDS: predniSONE 5 MG TAB PO SCH (08:33)
[2022-12-08] MEDS: Heparin 5,000 UNITS/ML VIAL SC SCH ×2 (08:34→20:23)
[2022-12-08] MEDS ORDERED: traMADol HCl 50 MG TAB PO PRN (08:45)
[2022-12-08] MEDS: Acetaminophen 500 MG TAB PO PRN ×3 (08:53→18:18)
[2022-12-09] MEDS: Acetaminophen 500 MG TAB PO PRN ×5 (00:26→23:47)
[2022-12-09 05:29] LABS: Anion Gap 13 mmol/L (10-20); BUN (Urea Nitrogen) 46 mg/dL (8.4-25.7); Calc. Creatinine Clearance 21 mL/min (70-130); Calcium 7.8 mg/dL (7.8-10.44); Carbon Dioxide 26 mmol/L (22-29); Chloride 98 mmol/L (98-107); Estimated GFR 10; Glucose 90 mg/dL (70-105); Potassium 3.1 mmol/L (3.5-5.1); Sodium 134 mmol/L (136-145)
[2022-12-09 05:37] LABS: Band 1 % (5-11); Hemoglobin 7.9 g/dL (14.0-18.0); Lymphocytes 7 % (21-51); MDiff Complete? YES; Mean Corpuscular HGB CONC 34.1 g/dL (32.0-36.0); Mean Corpuscular Hemoglobin 28.7 pg (27.0-31.0); Mean Corpuscular Volume 84.1 fl (78.0-98.0); Monocytes 8 % (0-10); Myelocyte 1 % (0-0); Neutrophil 83 % (42-75); Platelet Count 138 10x3/uL (130-400); Platelet Morphology Comment Appears Adequate; RBC Distribution Width 13.2 % (11.5-14.5); RBC Morphology Normal; Red Blood Cell (RBC) Count 2.74 mill/uL (4.70-6.10); White Blood Cell (WBC) Count 6.5 10x3/uL (4.8-10.8)
[2022-12-09] MEDS ORDERED: Heparin 10,000 UNITS/ 10 ML VIAL ONE (09:44)
[2022-12-09] MEDS: Magnesium Oxide 250 MG TAB PO SCH ×2 (14:27→19:52)
[2022-12-09] MEDS: Heparin 5,000 UNITS/ML VIAL SC SCH ×2 (14:27→19:52)
[2022-12-09] MEDS: cycloSPORINE, Modified 100 MG CAP PO SCH ×3 (14:27→19:53)
[2022-12-09] MEDS: Famotidine 20 MG TAB PO SCH (14:37)
[2022-12-09] MEDS: NIFEdipine XL 30 MG TAB PO SCH (14:37)
[2022-12-09] MEDS: predniSONE 5 MG TAB PO SCH (14:37)
[2022-12-09] MEDS: SODIUM CHLORIDE 0.9% IVPB SCH (17:22)
[2022-12-09] MEDS: GANCICLOVIR SODIUM IVPB SCH (17:22)
[2022-12-09] MEDS: EPOETIN ALFA-EPBX (ESRD) 10,000 UNITS/ML VIAL SC SCH (17:23)
[2022-12-10 04:20] LABS: #Lymphocytes 1.2 thou/uL (1.20-3.40); #Neutrophils 4.7 thou/uL (1.40-6.50); %Basophils 0.1 % (0.0-1.0); %Eosinophils 0.4 % (0.0-10.0); %Monocytes 14.3 % (0.0-10.0); %Neutrophils 68.2 % (42.0-75.0); Hemoglobin 8.5 g/dL (14.0-18.0); Mean Corpuscular HGB CONC 33.8 g/dL (32.0-36.0); Mean Corpuscular Hemoglobin 28.5 pg (27.0-31.0); Mean Corpuscular Volume 84.5 fl (78.0-98.0); Mean Platelet Volume 11.2 fL (7.4-10.4); Platelet Count 171 10x3/uL (130-400); RBC Distribution Width 13.3 % (11.5-14.5); Red Blood Cell (RBC) Count 2.97 mill/uL (4.70-6.10); White Blood Cell (WBC) Count 6.9 10x3/uL (4.8-10.8)
[2022-12-10 04:38] LABS: Anion Gap 14 mmol/L (10-20); BUN (Urea Nitrogen) 32 mg/dL (8.4-25.7); Calc. Creatinine Clearance 28 mL/min (70-130); Carbon Dioxide 26 mmol/L (22-29); Chloride 97 mmol/L (98-107); Estimated GFR 14; Glucose 98 mg/dL (70-105); Potassium 3.5 mmol/L (3.5-5.1); Sodium 133 mmol/L (136-145)
[2022-12-10 06:39] LABS: Bacteria/HPF 2+ HPF (None Seen); Bilirubin Negative (Negative); Blood, Urine 2+ (Negative); Clarity Extra Turbid (Clear); Glucose, Urine (Dipstick) 50 mg/dL (Negative); Ketone, Urine Negative (Negative); Leukocyte 500 Leu/uL (Negative); Nitrite Negative (Negative); Protein, Urine (Dipstick) 300 mg/dL (Neg-Trace); RBC/HPF 21-50 HPF (0-3); Specific Gravity, Urine 1.019 (1.002-1.036); Squamous Epithelial 0-3 HPF (0-3); Transitional Epithelial 0-3 HPF (None Seen); Urobilinogen Normal mg/dL (Less than 2); WBC/HPF Greater than 50 HPF (0-3)
[2022-12-10 06:54] LABS: Creatinine, Urine 70.39 mg/dL (63-166)
[2022-12-10] MEDS ORDERED: fentaNYL 50 mcg/mL 1 mL Vial ONE (10:14)
[2022-12-10] MEDS ORDERED: Heparin 10,000 UNITS/ 10 ML VIAL ONE ×2 (10:20→20:50)
[2022-12-10] MEDS ORDERED: Lidocaine 2% PF 5 ML VIAL ONE ×2 (10:20→20:50)
[2022-12-10] MEDS ORDERED: Bupivacaine HCl 0.5%/Epinephrine 1:200,000/PF 30 ml Vial ONE ×2 (10:20→20:50)
[2022-12-10] MEDS ORDERED: Lidocaine 1% PF 5 ML VIAL ONE ×2 (10:45→21:16)
[2022-12-10] MEDS ORDERED: PHENYLEPHRINE-NS 100 MCG/ML 10 ML SYRINGE ONE ×3 (10:45→21:16)
[2022-12-10] MEDS ORDERED: PROPOFOL 200 MG/20 ML VIAL ONE ×2 (10:45→21:16)
[2022-12-10] MEDS: Heparin 5,000 UNITS/ML VIAL SC SCH ×2 (12:29→23:27)
[2022-12-10] MEDS: cefTRIAXone\\ROCEPHIN 1 GM in Sodium Chloride 0.9% 100 ML IVPB SCH (12:57)
[2022-12-10] MEDS: NIFEdipine XL 30 MG TAB PO SCH (12:57)
[2022-12-10] MEDS: cycloSPORINE, Modified 100 MG CAP PO SCH ×2 (12:58→23:26)
[2022-12-10] MEDS: predniSONE 5 MG TAB PO SCH (12:58)
[2022-12-10] MEDS: Famotidine 20 MG TAB PO SCH (12:59)
[2022-12-10] MEDS: Magnesium Oxide 250 MG TAB PO SCH ×2 (12:59→23:26)
[2022-12-10 17:10] LABS: Actual Bicarbonate (HCO3v) 24.8 mEq/L (22-28); Base Excess 1.7 mEq/L (-2.0 to +3.0); Calcium, Ionized (venous) 0.97 mmol/L (1.16-1.32); Chloride (VBG) 98 mmol/L (98-106); Hematocrit-VBG 28 % (42.0-52.0); Hemoglobin (Hb) 9.5 g/dL (13.1-17.2); Sodium 130.1 mmol/L (133-146); pH (venous) 7.496 (7.32-7.43)
[2022-12-10] MEDS: Acetaminophen 500 MG TAB PO PRN (20:22)
[2022-12-10] MEDS ORDERED: Morphine 2 MG/ML VIAL SLOW IVP PRN (20:25)
[2022-12-10] MEDS ORDERED: Bupivacaine/Epinephrine 0.25% 30 ML VIAL ONE (20:50)
[2022-12-10] MEDS ORDERED: SUGAMMADEX SODIUM 200 MG/2 ML VIAL ONE (20:51)
[2022-12-10] MEDS ORDERED: Fentanyl 250 MCG/5 ML VIAL ONE (20:51)
[2022-12-10] MEDS ORDERED: Ondansetron PF 4 MG/2 ML Vial ONE (21:16)
[2022-12-10] MEDS ORDERED: Esmolol 100 MG/10 ML VIAL ONE (21:16)
[2022-12-10] MEDS ORDERED: Rocuronium Bromide 10 MG/ML (10ML VIAL) ONE (21:16)
[2022-12-10] MEDS ORDERED: Dexamethasone 20 MG/5 ML VIAL ONE (21:16)
[2022-12-10] MEDS ORDERED: Heparin 5,000 UNITS/ML VIAL ONE (21:32)
[2022-12-10] MEDS ORDERED: Ondansetron HCl/PF 4 MG/2 ML Vial IVP PRN (22:15)
[2022-12-10] MEDS ORDERED: Promethazine HCl 25 MG/ML VIAL IM PRN (22:15)
[2022-12-11 00:12] LABS: CMV log 10 Quant 3.326 (.)
[2022-12-11 04:04] LABS: #Lymphocytes 0.4 thou/uL (1.20-3.40); #Monocytes 0.5 thou/uL (0.11-0.59); #Neutrophils 6.6 thou/uL (1.40-6.50); %Basophils 0.1 % (0.0-1.0); %Eosinophils 0.3 % (0.0-10.0); %Lymphocytes 4.9 % (21.0-51.0); %Neutrophils 87.8 % (42.0-75.0); Hemoglobin 8.3 g/dL (14.0-18.0); Mean Corpuscular HGB CONC 31.2 g/dL (32.0-36.0); Mean Corpuscular Hemoglobin 26.7 pg (27.0-31.0); Mean Corpuscular Volume 85.3 fl (78.0-98.0); Mean Platelet Volume 11.1 fL (7.4-10.4); Platelet Count 207 10x3/uL (130-400); RBC Distribution Width 13.4 % (11.5-14.5); Red Blood Cell (RBC) Count 3.12 mill/uL (4.70-6.10); White Blood Cell (WBC) Count 7.5 10x3/uL (4.8-10.8)
[2022-12-11 04:20] LABS: Anion Gap 18 mmol/L (10-20); BUN (Urea Nitrogen) 47 mg/dL (8.4-25.7); Calc. Creatinine Clearance 21 mL/min (70-130); Calcium 7.8 mg/dL (7.8-10.44); Carbon Dioxide 21 mmol/L (22-29); Chloride 98 mmol/L (98-107); Estimated GFR 10; Glucose 169 mg/dL (70-105); Potassium 3.9 mmol/L (3.5-5.1); Sodium 133 mmol/L (136-145)
[2022-12-11] MEDS ORDERED: Heparin 10,000 UNITS/ 10 ML VIAL ONE (09:09)
[2022-12-11] MEDS: predniSONE 5 MG TAB PO SCH (12:44)
[2022-12-11] MEDS: cycloSPORINE, Modified 100 MG CAP PO SCH ×2 (12:44→21:23)
[2022-12-11] MEDS: NIFEdipine XL 30 MG TAB PO SCH (12:45)
[2022-12-11] MEDS: Heparin 5,000 UNITS/ML VIAL SC SCH ×2 (12:45→21:27)
[2022-12-11] MEDS: Famotidine 20 MG TAB PO SCH (12:45)
[2022-12-11] MEDS: Magnesium Oxide 250 MG TAB PO SCH ×2 (12:45→21:23)
[2022-12-11] MEDS: cefTRIAXone\\ROCEPHIN 1 GM in Sodium Chloride 0.9% 100 ML IVPB SCH (12:58)
[2022-12-11] MEDS ORDERED: traMADol HCl 50 MG TAB PO PRN (15:04)
[2022-12-11] MEDS: GANCICLOVIR SODIUM IVPB SCH (17:45)
[2022-12-11] MEDS: SODIUM CHLORIDE 0.9% IVPB SCH (17:45)
[2022-12-12] MEDS: cycloSPORINE, Modified 100 MG CAP PO SCH ×2 (08:59→20:41)
[2022-12-12] MEDS: predniSONE 5 MG TAB PO SCH (09:00)
[2022-12-12] MEDS: Magnesium Oxide 250 MG TAB PO SCH ×2 (09:00→20:41)
[2022-12-12] MEDS: Famotidine 20 MG TAB PO SCH (09:00)
[2022-12-12] MEDS: Heparin 5,000 UNITS/ML VIAL SC SCH ×2 (09:01→21:01)
[2022-12-12] MEDS: NIFEdipine XL 30 MG TAB PO SCH (09:02)
[2022-12-12] MEDS: Acetaminophen 500 MG TAB PO PRN ×2 (10:16→20:41)
[2022-12-12] MEDS: cefTRIAXone\\ROCEPHIN 1 GM in Sodium Chloride 0.9% 100 ML IVPB SCH (10:17)
[2022-12-12] MEDS ORDERED: NIFEdipine XL 30 MG TAB PO SCH (21:31)
[2022-12-13] MEDS: Acetaminophen 325 MG TAB PO PRN ×4 (01:29→22:18)
[2022-12-13] MEDS: Famotidine 20 MG TAB PO SCH (08:15)
[2022-12-13] MEDS: Heparin 5,000 UNITS/ML VIAL SC SCH ×2 (08:15→21:19)
[2022-12-13] MEDS: Magnesium Oxide 250 MG TAB PO SCH ×2 (08:15→21:20)
[2022-12-13] MEDS: predniSONE 5 MG TAB PO SCH (08:15)
[2022-12-13] MEDS: cefTRIAXone\\ROCEPHIN 1 GM in Sodium Chloride 0.9% 100 ML IVPB SCH (09:41)
[2022-12-13] MEDS: cycloSPORINE, Modified 25 MG CAP PO SCH ×2 (09:41→09:48)
[2022-12-13] MEDS: cycloSPORINE, Modified 100 MG CAP PO SCH (21:19)
[2022-12-14] MEDS: Acetaminophen 325 MG TAB PO PRN ×4 (04:07→17:06)
[2022-12-14] MEDS: Famotidine 20 MG TAB PO SCH (07:39)
[2022-12-14] MEDS: Heparin 5,000 UNITS/ML VIAL SC SCH ×2 (07:39→20:43)
[2022-12-14] MEDS ORDERED: Heparin 10,000 UNITS/ 10 ML VIAL ONE (08:24)
[2022-12-14] MEDS: cefTRIAXone\\ROCEPHIN 1 GM in Sodium Chloride 0.9% 100 ML IVPB SCH (13:19)
[2022-12-14] MEDS: predniSONE 5 MG TAB PO SCH (13:20)
[2022-12-14] MEDS: cycloSPORINE, Modified 100 MG CAP PO SCH ×2 (13:20→20:43)
[2022-12-14] MEDS: Magnesium Oxide 250 MG TAB PO SCH ×2 (13:21→20:46)
[2022-12-14] MEDS: SODIUM CHLORIDE 0.9% IVPB SCH (16:55)
[2022-12-14] MEDS: GANCICLOVIR SODIUM IVPB SCH (16:55)
[2022-12-15] MEDS: Acetaminophen 325 MG TAB PO PRN ×3 (01:27→20:50)
[2022-12-15] MEDS: cycloSPORINE, Modified 100 MG CAP PO SCH ×2 (08:38→20:43)
[2022-12-15] MEDS: Heparin 5,000 UNITS/ML VIAL SC SCH ×2 (08:38→20:29)
[2022-12-15] MEDS: Magnesium Oxide 250 MG TAB PO SCH ×2 (08:39→20:58)
[2022-12-15] MEDS: predniSONE 5 MG TAB PO SCH (08:39)
[2022-12-15] MEDS: Famotidine 20 MG TAB PO SCH (08:40)
[2022-12-15] MEDS: cefTRIAXone\\ROCEPHIN 1 GM in Sodium Chloride 0.9% 100 ML IVPB SCH (08:40)
[2022-12-16] MEDS: Acetaminophen 325 MG TAB PO PRN (02:40)
[2022-12-16] MEDS: cycloSPORINE, Modified 100 MG CAP PO SCH (08:44)
[2022-12-16] MEDS: predniSONE 5 MG TAB PO SCH (08:44)
[2022-12-16] MEDS: Magnesium Oxide 250 MG TAB PO SCH (08:45)
[2022-12-16] MEDS: Famotidine 20 MG TAB PO SCH (08:45)
[2022-12-16] MEDS: EPOETIN ALFA-EPBX (ESRD) 10,000 UNITS/ML VIAL SC SCH ×2 (08:45→14:02)
[2022-12-16] MEDS: Heparin 5,000 UNITS/ML VIAL SC SCH (08:46)
[2022-12-16] MEDS ORDERED: Heparin 10,000 UNITS/ 10 ML VIAL ONE (09:10)
[2022-12-16 13:32] VITALS: BMI 29.7
[2022-12-16] MEDS: cefTRIAXone\\ROCEPHIN 1 GM in Sodium Chloride 0.9% 100 ML IVPB SCH (14:02)
[2022-12-16 15:02] VITALS: BP 131/76; TEMP 97.4
[2022-12-21] MEDS ORDERED: valGANciclovir 50 MG/ML ORAL SOLN PO SCH (17:00)
== END 2022-12-16 16:50 | disposition home or self-care (01) | DRG 673 ==
LOC: ERS 14:45 → CCU 18:47 → 2NO 12-02 18:12
PROVIDERS: ADMIT Internal Medicine; ATTEND Internal Medicine
PROC: 5A1D70Z Performance of Urinary Filtration, Intermittent, Less than 6 Hours Per Day (ICD-10-PCS; principal; 2022-11-30)
PROC: 02HV33Z Insertion of Infusion Device into Superior Vena Cava, Percutaneous Approach (ICD-10-PCS; 2022-11-30)
PROC: B548ZZA Ultrasonography of Superior Vena Cava, Guidance (ICD-10-PCS; 2022-11-30)
PROC: 30233N1 Transfusion of Nonautologous Red Blood Cells into Peripheral Vein, Percutaneous Approach (ICD-10-PCS; 2022-12-04)
PROC: 0JH63XZ Insertion of Tunneled Vascular Access Device into Chest Subcutaneous Tissue and Fascia, Percutaneous Approach (ICD-10-PCS; 2022-12-10)
PROC: 05PY03Z Removal of Infusion Device from Upper Vein, Open Approach (ICD-10-PCS; 2022-12-10)
PROC: 03Q Upper Arteries, Repair (ICD-10-PCS; 2022-12-10)
PROC: 02HV33Z Insertion of Infusion Device into Superior Vena Cava, Percutaneous Approach (ICD-10-PCS; 2022-12-10)
PROC: B5181ZA Fluoroscopy of Superior Vena Cava using Low Osmolar Contrast, Guidance (ICD-10-PCS; 2022-12-10)
PROC: 05HM33Z Insertion of Infusion Device into Right Internal Jugular Vein, Percutaneous Approach (ICD-10-PCS; 2022-12-10)
DX: T86.19 Other complication of kidney transplant (principal); N18.6 End stage renal disease; B25.9 Cytomegaloviral disease, unspecified; E87.20 Acidosis, unspecified; N17.9 Acute kidney failure, unspecified; J98.11 Atelectasis; N39.0 Urinary tract infection, site not specified; I12.0 Hypertensive chronic kidney disease with stage 5 chronic kidney disease or end stage renal disease; T82.42XA Displacement of vascular dialysis catheter, initial encounter; E87.5 Hyperkalemia; E83.42 Hypomagnesemia; D63.1 Anemia in chronic kidney disease; I27.20 Pulmonary hypertension, unspecified; Z96.653 Presence of artificial knee joint, bilateral; N40.1 Benign prostatic hyperplasia with lower urinary tract symptoms; R33.8 Other retention of urine; E87.6 Hypokalemia; I49.5 Sick sinus syndrome; I44.0 Atrioventricular block, first degree; E87.8 Other disorders of electrolyte and fluid balance, not elsewhere classified; G47.30 Sleep apnea, unspecified; Y83.8 Other surgical procedures as the cause of abnormal reaction of the patient, or of later complication, without mention of misadventure at the time of the procedure; Z79.899 Other long term (current) drug therapy; Z79.52 Long term (current) use of systemic steroids; E27.8 Other specified disorders of adrenal gland
CPT/HCPCS: 36415; 36430; 36556; 71045; 71250; 74176; 76775; 80048; 80053; 80076; 80158; 81001; 81003; 81015; 82550; 82565; 82570; 82805; 83605; 83690; 83735; 84156; 84443; 85025; 85027; 86140; 86580; 86644; 86645; 86704; 86850; 86900; 86901; 87071; 87077; 87086; 87186; 87324; 87449; 87497; 87799; 90935; 93005; 93010; 96374; 96375; C1752; G0257; J0696; J1100; J1570; J1644; J1815; J2001; J2270; J2405; J2704; J3010; J3475; J3490; J7502; J7512; J7515; J7999; J8499; P9016; Q5105

== ENCOUNTER 2022-12-18 15:56 | Inpatient (IN) | payer BC ==
[2022-12-18 16:26] LABS: #Monocytes 1.1 thou/uL (0.11-0.59); #Neutrophils 6.7 thou/uL (1.40-6.50); %Basophils 0.1 % (0.0-1.0); %Eosinophils 0.2 % (0.0-10.0); %Monocytes 12.2 % (0.0-10.0); %Neutrophils 74.2 % (42.0-75.0); Hemoglobin 7.4 g/dL (14.0-18.0); Mean Corpuscular HGB CONC 33.3 g/dL (32.0-36.0); Mean Corpuscular Hemoglobin 27.2 pg (27.0-31.0); Mean Corpuscular Volume 81.6 fl (78.0-98.0); Mean Platelet Volume 11.7 fL (7.4-10.4); Platelet Count 295 10x3/uL (130-400); RBC Distribution Width 14.6 % (11.5-14.5); Red Blood Cell (RBC) Count 2.72 mill/uL (4.70-6.10); White Blood Cell (WBC) Count 9.1 10x3/uL (4.8-10.8)
[2022-12-18 16:56] LABS: Bacteria/HPF 3+ HPF (None Seen); Bilirubin Negative (Negative); Blood, Urine 3+ (Negative); Clarity Extra Turbid (Clear); Glucose, Urine (Dipstick) 30 mg/dL (Negative); Ketone, Urine Negative (Negative); Leukocyte Negative Leu/uL (Negative); Nitrite Negative (Negative); Protein, Urine (Dipstick) 600 mg/dL (Neg-Trace); RBC/HPF 21-50 HPF (0-3); Squamous Epithelial 0-3 HPF (0-3); Urobilinogen Normal mg/dL (Less than 2); WBC/HPF 0-3 HPF (0-3)
[2022-12-18 17:04] LABS: ALT (SGPT) Less than 7 U/L (8-55); AST (SGOT) 16 U/L (5-34); Albumin 2.4 g/dL (3.5-5.0); Alkaline Phosphatase 73 U/L (40-110); Anion Gap 20 mmol/L (10-20); BUN (Urea Nitrogen) 64 mg/dL (8.4-25.7); Bilirubin, Total 0.3 mg/dL (0.2-1.2); Calc. Creatinine Clearance 0 mL/min (70-130); Calcium 8.4 mg/dL (7.8-10.44); Carbon Dioxide 20 mmol/L (22-29); Chloride 95 mmol/L (98-107); Estimated GFR 6; Globulin 3.6 g/dL (2.4-3.5); Glucose 130 mg/dL (70-105); Potassium 4.4 mmol/L (3.5-5.1); Sodium 131 mmol/L (136-145)
[2022-12-18] MEDS ORDERED: cefTRIAXone (ROCEPHIN) 2 GM VIAL ONE (17:16)
[2022-12-18 17:20] LABS: CKMB 1.3 ng/mL (0-6.6)
[2022-12-18 17:43] LABS: Magnesium 1.7 mg/dL (1.6-2.6); Phosphorus 5.1 mg/dL (2.3-4.7)
[2022-12-18] MEDS ORDERED: NOREPINEPHRINE 8 MG/250 ML-D5W 250 ML ONE (17:58)
[2022-12-18] MEDS ORDERED: Ondansetron PF 4 MG/2 ML Vial IVP PRN (18:32)
[2022-12-18] MEDS ORDERED: Acetaminophen 650 MG Suppository PR PRN (18:32)
[2022-12-18] MEDS ORDERED: Ondansetron ODT 4 MG TAB PO PRN (18:32)
[2022-12-18 19:48] LABS: Troponin I 0.102 ng/mL (< 0.028)
[2022-12-18 21:55] VITALS: BMI 26.4
[2022-12-18] MEDS ORDERED: Magnesium 2 GM/50 ML(in water) 2 GM in Premix Bag 1 BAG IVPB SCH (22:00)
[2022-12-18 22:14] LABS: SARS-CoV-2 NAA Rapid Test Not Detected (NotDetected)
[2022-12-18] MEDS ORDERED: Albumin 25% 25 GM/100 ML BOT IVPB SCH (22:15)
[2022-12-18] MEDS: Heparin 5,000 UNITS/ML VIAL SC SCH (23:00)
[2022-12-18] MEDS ORDERED: NOREPINEPHRINE 8 MG/250 ML-D5W 250 ML IVPB SCH (23:45)
[2022-12-18] MEDS ORDERED: Sodium Chloride 0.9% 500 ML IV SCH (23:45)
[2022-12-18] MEDS: valGANciclovir 50 MG/ML ORAL SOLN PO SCH (23:52)
[2022-12-19 04:08] LABS: Hemoglobin 6.9 g/dL (14.0-18.0); Mean Corpuscular HGB CONC 31.9 g/dL (32.0-36.0); Mean Corpuscular Hemoglobin 26.4 pg (27.0-31.0); Mean Corpuscular Volume 82.8 fl (78.0-98.0); Mean Platelet Volume 10.7 fL (7.4-10.4); Platelet Count 245 10x3/uL (130-400); RBC Distribution Width 14.8 % (11.5-14.5); Red Blood Cell (RBC) Count 2.61 mill/uL (4.70-6.10); White Blood Cell (WBC) Count 8.6 10x3/uL (4.8-10.8)
[2022-12-19 04:12] LABS: Delete Auto Diff?? YES; Manual Diff?? YES
[2022-12-19 04:33] LABS: Anion Gap 18 mmol/L (10-20); BUN (Urea Nitrogen) 65 mg/dL (8.4-25.7); Calc. Creatinine Clearance 13 mL/min (70-130); Calcium 8.3 mg/dL (7.8-10.44); Carbon Dioxide 20 mmol/L (22-29); Chloride 99 mmol/L (98-107); Estimated GFR 6; Glucose 101 mg/dL (70-105); Potassium 4.1 mmol/L (3.5-5.1); Sodium 133 mmol/L (136-145)
[2022-12-19 04:44] LABS: Anisocytosis MODERATE=16-30 cells HPF (0-5); Band 3 % (5-11); Eosinophils 1 % (0-10); Hypochromia SLIGHT = 6-15 cells HPF (0-5); Lymphocytes 6 % (21-51); Macrocytosis SLIGHT = 6-15 cells HPF (0-5); Monocytes 1 % (0-10); Neutrophil 89 % (42-75); Ovalocytes SLIGHT = 2-5 cells HPF (0-1); Platelet Morphology Comment Platelets Normal; Polychromasia SLIGHT = 2-3 cells HPF (0-2); Target Cells SLIGHT = 2-5 cells HPF (0-1); Tear Drops SLIGHT = 2-5 cells HPF (0-1); Total Cell Count 99
[2022-12-19] MEDS: cefTRIAXone\\ROCEPHIN 2 GM in Sodium Chloride 0.9% 100 ML IVPB SCH (05:52)
[2022-12-19] MEDS: Hydrocortisone Sod Succ/PF 100 mg/2 ml Vial IVP SCH ×3 (05:53→18:25)
[2022-12-19] MEDS ORDERED: Heparin 10,000 UNITS/ 10 ML VIAL ONE (08:50)
[2022-12-19] MEDS: Heparin 5,000 UNITS/ML VIAL SC SCH ×4 (08:59→20:18)
[2022-12-19] MEDS: predniSONE 20 MG TAB PO SCH (08:59)
[2022-12-19] MEDS ORDERED: EPOETIN ALFA-EPBX (ESRD) 10,000 UNITS/ML VIAL SC SCH (09:00)
[2022-12-19] MEDS: cycloSPORINE, Modified 100 MG CAP PO SCH (20:17)
[2022-12-19 20:57] LABS: Creatinine, Urine 171.82 mg/dL (63-166)
[2022-12-20] MEDS: Hydrocortisone Sod Succ/PF 100 mg/2 ml Vial IVP SCH ×5 (00:11→23:30)
[2022-12-20 03:29] LABS: #Monocytes 0.6 thou/uL (0.11-0.59); #Neutrophils 9.5 thou/uL (1.40-6.50); %Basophils 0.1 % (0.0-1.0); %Lymphocytes 5.1 % (21.0-51.0); %Monocytes 5.6 % (0.0-10.0); %Neutrophils 84.5 % (42.0-75.0); Hemoglobin 7.4 g/dL (14.0-18.0); Mean Corpuscular HGB CONC 33.3 g/dL (32.0-36.0); Mean Corpuscular Hemoglobin 27.1 pg (27.0-31.0); Mean Corpuscular Volume 81.3 fl (78.0-98.0); Mean Platelet Volume 11.4 fL (7.4-10.4); Platelet Count 277 10x3/uL (130-400); RBC Distribution Width 14.6 % (11.5-14.5); Red Blood Cell (RBC) Count 2.73 mill/uL (4.70-6.10); White Blood Cell (WBC) Count 11.3 10x3/uL (4.8-10.8)
[2022-12-20 04:02] LABS: ALT (SGPT) Less than 7 U/L (8-55); AST (SGOT) 8 U/L (5-34); Albumin 2.5 g/dL (3.5-5.0); Alkaline Phosphatase 71 U/L (40-110); Anion Gap 15 mmol/L (10-20); BUN (Urea Nitrogen) 52 mg/dL (8.4-25.7); Bilirubin, Total 0.2 mg/dL (0.2-1.2); Calc. Creatinine Clearance 16 mL/min (70-130); Calcium 8.4 mg/dL (7.8-10.44); Carbon Dioxide 22 mmol/L (22-29); Chloride 100 mmol/L (98-107); Estimated GFR 8; Globulin 2.9 g/dL (2.4-3.5); Glucose 134 mg/dL (70-105); Potassium 4.1 mmol/L (3.5-5.1); Protein, Total 5.4 g/dL (6.0-8.3); Sodium 133 mmol/L (136-145)
[2022-12-20] MEDS: cefTRIAXone\\ROCEPHIN 2 GM in Sodium Chloride 0.9% 100 ML IVPB SCH (05:13)
[2022-12-20] MEDS: Heparin 5,000 UNITS/ML VIAL SC SCH ×3 (10:24→20:40)
[2022-12-20] MEDS: cycloSPORINE, Modified 100 MG CAP PO SCH ×2 (10:24→20:42)
[2022-12-20] MEDS: predniSONE 20 MG TAB PO SCH (10:25)
[2022-12-21] MEDS: Acetaminophen 325 MG TAB PO PRN ×2 (02:10→15:57)
[2022-12-21 05:27] LABS: Platelet Count 269 10x3/uL (130-400)
[2022-12-21 05:48] LABS: Anion Gap 16 mmol/L (10-20); BUN (Urea Nitrogen) 66 mg/dL (8.4-25.7); Calc. Creatinine Clearance 14 mL/min (70-130); Calcium 8.5 mg/dL (7.8-10.44); Carbon Dioxide 22 mmol/L (22-29); Chloride 99 mmol/L (98-107); Estimated GFR 7; Glucose 108 mg/dL (70-105); Potassium 4.2 mmol/L (3.5-5.1); Sodium 133 mmol/L (136-145)
[2022-12-21] MEDS: predniSONE 20 MG TAB PO SCH (08:55)
[2022-12-21] MEDS: cycloSPORINE, Modified 100 MG CAP PO SCH ×2 (08:55→21:08)
[2022-12-21] MEDS: Heparin 5,000 UNITS/ML VIAL SC SCH ×3 (09:01→21:10)
[2022-12-21] MEDS: NIFEdipine XL 30 MG TAB PO SCH (09:01)
[2022-12-21] MEDS ORDERED: Tamsulosin HCl 0.4 MG CAP PO SCH (16:00)
[2022-12-21] MEDS: Magnesium Oxide 250 MG TAB PO SCH (21:08)
[2022-12-21] MEDS: Famotidine 20 MG TAB PO SCH (21:08)
[2022-12-21] MEDS: Minoxidil 2.5 MG TAB PO SCH (21:10)
[2022-12-21] MEDS: valGANciclovir 50 MG/ML ORAL SOLN PO SCH (21:11)
[2022-12-22] MEDS: Acetaminophen 325 MG TAB PO PRN ×2 (03:10→20:36)
[2022-12-22 05:22] LABS: Hemoglobin 7.7 g/dL (14.0-18.0); Platelet Count 230 10x3/uL (130-400)
[2022-12-22] MEDS: Minoxidil 2.5 MG TAB PO SCH ×2 (08:17→20:28)
[2022-12-22] MEDS: Tamsulosin HCl 0.4 MG CAP PO SCH (08:18)
[2022-12-22] MEDS: Allopurinol 100 MG TAB PO SCH (08:18)
[2022-12-22] MEDS: predniSONE 20 MG TAB PO SCH (08:18)
[2022-12-22] MEDS: NIFEdipine XL 30 MG TAB PO SCH (08:18)
[2022-12-22] MEDS: Heparin 5,000 UNITS/ML VIAL SC SCH ×3 (08:18→20:29)
[2022-12-22] MEDS: Magnesium Oxide 250 MG TAB PO SCH ×2 (08:18→20:29)
[2022-12-22] MEDS ORDERED: Heparin 10,000 UNITS/ 10 ML VIAL ONE (08:33)
[2022-12-22] MEDS: cycloSPORINE, Modified 100 MG CAP PO SCH ×2 (13:29→20:29)
[2022-12-22] MEDS: Famotidine 20 MG TAB PO SCH (20:29)
[2022-12-23] MEDS: Acetaminophen 325 MG TAB PO PRN ×3 (00:23→09:40)
[2022-12-23 08:21] VITALS: BP 132/88; TEMP 97.4
[2022-12-23] MEDS: NIFEdipine XL 30 MG TAB PO SCH (09:39)
[2022-12-23] MEDS: Magnesium Oxide 250 MG TAB PO SCH (09:39)
[2022-12-23] MEDS: Allopurinol 100 MG TAB PO SCH (09:39)
[2022-12-23] MEDS: predniSONE 20 MG TAB PO SCH (09:39)
[2022-12-23] MEDS: Minoxidil 2.5 MG TAB PO SCH (09:39)
[2022-12-23] MEDS: Heparin 5,000 UNITS/ML VIAL SC SCH (09:40)
[2022-12-23] MEDS: cycloSPORINE, Modified 100 MG CAP PO SCH (09:40)
[2022-12-23] MEDS: Tamsulosin HCl 0.4 MG CAP PO SCH (09:45)
[2022-12-23 22:36] LABS: CMV log 10 Quant 3.604 (.)
== END 2022-12-23 13:02 | disposition home or self-care (01) | DRG 643 ==
LOC: ERS 15:56 → CCU 18:12 → MSONC 12-21 20:24
PROVIDERS: ADMIT Student in an Organized Health Care Education/Training Program; ATTEND Family Medicine
PROC: 30233N1 Transfusion of Nonautologous Red Blood Cells into Peripheral Vein, Percutaneous Approach (ICD-10-PCS; principal; 2022-12-19)
PROC: 5A1D70Z Performance of Urinary Filtration, Intermittent, Less than 6 Hours Per Day (ICD-10-PCS; 2022-12-19)
DX: E27.40 Unspecified adrenocortical insufficiency (principal); N18.6 End stage renal disease; R57.9 Shock, unspecified; N17.9 Acute kidney failure, unspecified; N30.00 Acute cystitis without hematuria; B25.8 Other cytomegaloviral diseases; T86.19 Other complication of kidney transplant; Z96.652 Presence of left artificial knee joint; D63.1 Anemia in chronic kidney disease; Y83.8 Other surgical procedures as the cause of abnormal reaction of the patient, or of later complication, without mention of misadventure at the time of the procedure; N05.9 Unspecified nephritic syndrome with unspecified morphologic changes; Z20.822 Contact with and (suspected) exposure to COVID-19; Z99.2 Dependence on renal dialysis; Z79.899 Other long term (current) drug therapy
CPT/HCPCS: 36415; 36430; 71045; 80048; 80053; 81003; 81015; 82533; 82553; 82570; 83605; 83735; 83880; 84100; 84156; 84484; 85014; 85018; 85025; 85049; 86850; 86900; 86901; 87040; 87086; 87497; 90935; 93005; 93306; 96361; 96365; 96366; 96367; G0257; J0696; J1644; J1720; J3475; J3490; J7030; J7502; J7512; P9016; P9047; Q5105